=== PATIENT | male | born 1950 | race Two or more races ===

== ENCOUNTER 2016-07-22 08:13 | Day surgery (SDC) | payer MEDICARE, OTHER ==
[~2016-07-22] VITALS: Ht 172.7 cm; Wt 94.8 kg
[2016-07-22] VITALS (40 sets, daily range): BP systolic 116–168; BP diastolic 59–76; PULSE 54–72; RESP 11–23; Ht 172.7 cm; Wt 94.8 kg
[~2016-07-22 08:13] MED LIST: AMLO5TAB4 PO; APIX5TAB PO; CLON-379 PO; FENO134C PO; METF500T PO; METO-429 PO; METO-448 PO; OLME1TAB20 PO
--- NOTE | 2016-07-22 09:38 | RADRPT ---
PROCEDURE: XR Chest. CLINICAL INDICATION: Chest pain. Preoperative. TECHNIQUE: Single frontal view. COMPARISON: 04/28/2014. FINDINGS: The lungs are clear. The heart size is normal. There is calcification in the aorta consistent with atherosclerosis. There is no pleural effusion. There is no pneumothorax. IMPRESSION: 1. Atherosclerosis. 2. Clear lungs. RPTAT: QQ .Melvin Munoz MD, MD Date Time Electronically viewed and signed by .Melvin Munoz MD, MD on 07/22/2016 09:37 .R/
[2016-07-22 09:40] LABS: ADD SCAN DIFF NO
[2016-07-22 09:43] LABS: BASOPHILS % 0.2 % (0.0-2.0); EOSINOPHILS # 0.1 10^3/ul (0.0-0.5); EOSINOPHILS % 1.5 % (0.0-7.0); HEMATOCRIT 36.8 % (42.0-52.0); HEMOGLOBIN 12.6 g/dl (14.0-18.0); LYMPHOCYTES # 1.3 10^3/ul (0.8-2.9); LYMPHOCYTES % 21.2 % (15.0-51.0); MEAN CORPUSCULAR HEMOGLOBIN 31.8 pg (29.0-33.0); MEAN CORPUSCULAR HGB CONC 34.2 g/dl (32.0-37.0); MEAN CORPUSCULAR VOLUME 92.9 fl (82.0-101.0); MEAN PLATELET VOLUME 10.3 fl (7.4-10.4); MONOCYTE # 0.4 10^3/ul (0.3-0.9); MONOCYTES % 5.9 % (0.0-11.0); NEUTROPHIL # 4.3 10^3/ul (1.6-7.5); NEUTROPHILS % 70.7 % (39.0-77.0); PLATELET COUNT 232 10^3/UL (140-415); RED BLOOD COUNT 3.96 10^6/ul (4.70-6.10); RED CELL DISTRIBUTION WIDTH 13.3 % (11.5-14.5); WHITE BLOOD COUNT 6.1 10^3/ul (4.8-10.8)
[2016-07-22 10:06] LABS: INR 1.19; PROTIME 15.2 Sec (12.2-14.2); PT RATIO 1.2
[2016-07-22 10:07] LABS: PARTIAL THROMBOPLASTIN TIME 29.4 Sec (25.0-35.0)
[2016-07-22 10:10] LABS: CHOL/HDL RATIO 2.5 RATIO
[2016-07-22 10:11] LABS: CALCIUM 9.3 mg/dl (8.4-10.2); CREATININE 1.06 mg/dl (0.61-1.24); POTASSIUM 3.6 mmol/L (3.5-5.1)
[2016-07-22] MEDS ORDERED: LIDOCAINE 1% (MDV) 20 ML INJ ONE (10:44)
[2016-07-22] MEDS ORDERED: MIDAZOLAM 1 MG/ML 2 ML INJ ONE (10:44)
[2016-07-22] MEDS ORDERED: HEPARIN 1000 UNITS/NS (A-LINE) 1,000 ML ONE (10:44)
[2016-07-22] MEDS ORDERED: VERAPAMIL 5 MG INJ ONE (10:44)
[2016-07-22] MEDS ORDERED: HEPARIN 1000 UNITS/ML 10 ML INJ ONE (10:44)
[2016-07-22] MEDS ORDERED: NITROGLYCERIN (IC) 100 MCG/ML INJ ONE (10:44)
[2016-07-22] MEDS ORDERED: FENTAnyl 50 MCG/ML VIAL ONE (10:44)
[2016-07-22] MEDS ORDERED: IODIXANOL LOCM 100 ML BTL ONE (10:44)
[2016-07-22] MEDS ORDERED: AL HYDROX/MG HYDROX/SIMETH 30 ML CUP PO PRN (11:30)
[2016-07-22] MEDS ORDERED: SOD CHLORIDE 0.9% 1,000 ML IV SCH (11:30)
[2016-07-22] MEDS ORDERED: morphine 2 MG INJ IV PRN (11:30)
[2016-07-22] MEDS ORDERED: ACETAMINOPHEN 325 MG TAB PO PRN ×2 (11:30→12:00)
[2016-07-22] MEDS ORDERED: ONDANSETRON 4 MG INJ IV PRN (11:30)
--- NOTE | 2016-07-22 11:47 | CARRPT ---
DATE OF PROCEDURE: 07/22/2016 TYPE OF PROCEDURE: 1. Left heart catheterization. 2. Coronary angiography. 3. Left ventriculogram. ATTENDING PHYSICIAN: Wendi Casillas MD REFERRING PHYSICIAN: Dr. Denney INDICATION: Chest pain with positive stress test findings for ischemia. TYPE OF ANESTHESIA: Conscious and local. BRIEF HISTORY: Mr. Ewing is a 66-year-old male with history of hypertension, dyslipidemia, diabe gurjit mellitus who initially presented with complaints of shoulder pain. The patient subsequently had a cardiac stress test revealing positive ischemia. Given these findings, the patient referred for and presents today in order to undergo left heart catheterization to assess for the possibility of s ignificant obstructive coronary artery disease lending to his symptoms of shoulder pain and positive stress test findings. PROCEDURE: After informed consent was obtained, the patient was brought to the [facility] cardiac catheterization lab where his right radial area was prepped and draped in usual susy rile fashion. Lidocaine 2% was infiltrated into right radial area in order to achieve adequate loca l anesthesia. With modified Seldinger technique, the right radial artery was cannulated and a 6-[facility] arterial was placed. A 6-Zambian JL3.5 catheter was used to cannulate the left main coronary ost ium with contrast injection. Multiple views of the left coronary arterial system were obtained. A JL3.5 over a guidewire and a JR4 was used to cannulate the right coronary arterial ostium. With con trast injection, multiple views of the right coronary arterial system obtained. JR4 was removed ove r a guidewire and a 6-Zambian pigtail was passed down the ascending aorta into the left ventricle. L eft ventricular end-diastolic pressure was measured. Using a power injector, 20 mL of contrast were injected, opacifying the left ventricle, performing a left ventriculogram. The pigtail catheter wa s then pulled back across the aortic valve to assess for significant gradient, which there was not a nd removed. Subsequently, at this time, the patient's sheath was removed. ____ was applied. There were no noted complications. FINDINGS: 1. Coronary angiography: Left main 4.5 mm, no significant stenoses. Circumflex proximally is a sm all caliber vessel, 2 mm, with an ostial 20% stenosis. In the mid portion of the circumflex, there is another 20% to 30% stenosis. The remainder of the circumflex is free of significant focal stenos is, very small caliber vessel. Distal branching obtuse marginal, a 2 mm vessel with no significant focal stenoses. The LAD proximally is a 3.5 mm vessel and after the bifurcation, the diagonal becom es a smaller caliber vessel and continues as approximately a [address] way down to the ape x and does just reach the apex and around it and has no significant focal stenoses. There is a mid proximal branching diagonal and mid branching diagonal, each approximately 2 mm with no significant focal stenoses. The patient's right coronary artery proximally is a 3.5 mm vessel and in its proxim al portion has a 50% stenosis, in the mid distal portion has a tubular 40% stenosis, is a dominant v essel, gives off a 2.5 mm PDA with an ostial 40% stenosis and a 3 mm posterolateral branch with no s ignificant focal stenoses. 1. Left ventriculogram revealed a preserved left ventricular ejection fraction of 60%, left ventric ular end diastolic pressure of 23 pre-LV gram, 26 post-LV gram, 1+ mitral regurgitation, no signific ant aortic stenosis by gradient. TOTAL FLUOROSCOPY TIME: 3.6 minutes. TOTAL CONTRAST: 25 mL. IMPRESSION: 1. Moderate nonobstructive coronary artery disease. 2. Preserved left ventricular systolic function. 3. Elevated left heart filling pressures. 4. No significant aortic stenosis by gradient. 5. 1+ mitral regurgitation. RECOMMENDATIONS: In light of procedure and findings at this time would: 1. Maximize medical management. 2. Aggressive risk factor reduction. 3. Patient will be readmitted to the same day surgery center for post catheterization observation a nd continued management of symptoms with discharge probably later this afternoon. Dictated By: WENDI ELLIOTT/KARELY Conf#: [id number] DID#: [id number] CC: NIKITA SHEPARD MD;*EndCC*
[2016-07-22] MEDS ORDERED: ACETAMINOPHEN 325 MG TAB ONE (11:50)
--- NOTE | 2016-07-23 08:51 | CONS ---
DATE OF ADMISSION: 07/22/2016 DATE OF CONSULTATION: 07/22/2016 TYPE OF PROCEDURE: 1. Left heart catheterization. 2. Coronary angiography. 3. Left ventriculogram. ATTENDING PHYSICIAN: Wendi Casillas MD REFERRING PHYSICIAN: Jd Denney MD INDICATION: Positive stress test findings, shoulder pain, possible anginal equivalent. TYPE OF ANESTHESIA: Conscious and local. BRIEF HISTORY AND HOSPITAL COURSE: Mr. Ewing is a 66-year-old male with history of hypertension, dyslipidemia, diabetes mellitus, who initially presented with complaints of shoulder pain. The pat ient underwent a cardiac stress test revealing positive ischemia. He has now been referred for left heart catheterization to assess for the possibility of significant obstructive coronary artery dise ase leading to symptoms of shoulder pain and positive stress test findings. PROCEDURE: After informed consent was obtained, he was brought to the [facility] cardiac catheterization lab where his right radial area was prepped and draped in the usual sterile fashion. Lidocaine 2% was infiltrated into the right radial artery in order to achieve adequate ane sthesia. Using modified Seldinger technique, the radial artery was cannulated and a 6-Upper Sor[place] JL3.5 catheter was used to cannulate the left main coronary ostium. With contrast injection, multiple vie ws of the left coronary arterial system were obtained. The JL3.5 was removed over a guidewire and a JR4 was used to cannulate the right coronary arterial ostium. With contrast injection, multiple vi ews of the right coronary arterial system were obtained. JL4 was removed over a guidewire and a 6-F rench pigtail was passed down the ascending aorta into the left ventricle. Left ventricular end-tammi stolic pressure was measured. Using a power injector, 20 mL of contrast were injected opacifying th e left ventricle. The pigtail catheter was then pulled back across the aortic valve to assess for s ignificant gradient, which there was not and removed. At this time, the patient's sheath was remove d. A TR band was applied. This completed the procedure. There were no noted complications. FINDINGS: Coronary angiography: Left main 4.5 mm, no significant stenoses. Circumflex DICTATION ENDS HERE Dictated By: WENDI ELLIOTT/KARELY Conf#: [id number] DID#: [id number]
== END 2016-07-22 16:40 | disposition home or self-care (01) ==
LOC: SDS 08:13
PROVIDERS: ATTEND Internal Medicine
DX: I25.10 Atherosclerotic heart disease of native coronary artery without angina pectoris (principal); I34.0 Nonrheumatic mitral (valve) insufficiency; I10 Essential (primary) hypertension; E78.5 Hyperlipidemia, unspecified; E11.9 Type 2 diabetes mellitus without complications
CPT/HCPCS: 71010; 80048; 80061; 82962; 85025; 85610; 85730; 93458; C1769; C1887; J1644; J2250; J3010; Q9967

== ENCOUNTER 2017-01-03 23:46 | Observation (INO) | payer MEDICARE, OTHER ==
[~2017-01-03] VITALS: Ht 170.2 cm; Wt 103.0 kg
[2017-01-04] VITALS (10 sets, daily range): BP systolic 138–182; BP diastolic 67–85; PULSE 52–65; RESP 18–19; TEMP 98.1; Ht 170.2 cm; Wt 103.0 kg
[2017-01-04 00:29] LABS: BASOPHILS % 0.3 % (0.0-2.0); EOSINOPHILS # 0.1 10^3/ul (0.0-0.5); EOSINOPHILS % 0.6 % (0.0-7.0); HEMATOCRIT 35.9 % (42.0-52.0); HEMOGLOBIN 13.1 g/dl (14.0-18.0); LYMPHOCYTES # 1.5 10^3/ul (0.8-2.9); LYMPHOCYTES % 14.5 % (15.0-51.0); MEAN CORPUSCULAR HEMOGLOBIN 32.7 pg (29.0-33.0); MEAN CORPUSCULAR HGB CONC 36.5 g/dl (32.0-37.0); MEAN CORPUSCULAR VOLUME 89.5 fl (82.0-101.0); MEAN PLATELET VOLUME 10.1 fl (7.4-10.4); MONOCYTE # 0.5 10^3/ul (0.3-0.9); MONOCYTES % 5.1 % (0.0-11.0); NEUTROPHIL # 8.2 10^3/ul (1.6-7.5); NEUTROPHILS % 79.1 % (39.0-77.0); PLATELET COUNT 202 10^3/UL (140-415); RED BLOOD COUNT 4.01 10^6/ul (4.70-6.10); RED CELL DISTRIBUTION WIDTH 12.6 % (11.5-14.5); WHITE BLOOD COUNT 10.3 10^3/ul (4.8-10.8)
[2017-01-04 00:51] LABS: ALANINE AMINOTRANSFERASE 42 IU/L (13-69); ALBUMIN 3.5 g/dl (3.3-4.9); ALBUMIN/GLOBULIN RATIO 1.02; ALKALINE PHOSPHATASE 86 IU/L (42-121); ANION GAP 12 (8-16); ASPARTATE AMINO TRANSFERASE 30 IU/L (15-46); BILIRUBIN,INDIRECT 0.2 mg/dl (0-1.1); BILIRUBIN,TOTAL 0.2 mg/dl (0.2-1.3); BLOOD UREA NITROGEN 16 mg/dl (7-20); CALCIUM 9.4 mg/dl (8.4-10.2); CARBON DIOXIDE 18 mmol/L (21-31); CHLORIDE 110 mmol/L (97-110); CREATININE 0.95 mg/dl (0.61-1.24); GLUCOSE 247 mg/dl (70-220); POTASSIUM 3.2 mmol/L (3.5-5.1); SODIUM 137 mmol/L (135-144); TOTAL PROTEIN 6.9 g/dl (6.1-8.1)
[2017-01-04 01:01] LABS: B-TYPE NATRIURETIC PEPTIDE 217 PG/ML (0-125)
[2017-01-04 01:08] LABS: TROPONIN-I < 0.012 ng/ml (0.00-0.12)
--- NOTE | 2017-01-04 01:12 | RADRPT ---
PROCEDURE: XR Chest. CLINICAL INDICATION: Chest pain. TECHNIQUE: Single frontal view of the chest. COMPARISON: 01/04/2017 FINDINGS: Cardiomegaly and atherosclerotic calcifications in the thoracic aorta. The lungs are clear. No signs of pleural fluid or pneumothorax are seen. The osseous structures and soft tissues are unremarkable . IMPRESSION: No evidence for active cardiopulmonary disease. RPTAT: [facility]U Physician Igor Date Time Electronically viewed and signed by Physician Igor on 01/04/2017 01:11 RS/
[2017-01-04] MEDS ORDERED: NAPR-688 PO (02:04)
[2017-01-04] MEDS ORDERED: OLOP2.5D5 OP (02:04)
[2017-01-04] MEDS ORDERED: DUTA0.5C PO (02:04)
[2017-01-04] MEDS ORDERED: ICOS1CAP PO (02:04)
[2017-01-04] MEDS ORDERED: DEXL60CA2 PO (02:04)
[2017-01-04] MEDS ORDERED: SITA1TAB5 PO (02:11)
[2017-01-04] MEDS ORDERED: ZOLP10TA5 PO (02:11)
[2017-01-04] MEDS ORDERED: SUMA100T4 PO (02:11)
[2017-01-04] MEDS ORDERED: APIX5TAB PO (02:11)
--- NOTE | 2017-01-04 02:23 | ERA ---
ER Documentation Chief Complaint Date/Time DATE: 01/04/17 TIME: 02:22 Chief Complaint unprovoked CP this evening, radiating down left arm HPI This is a 66-year-old gentleman known history of coronary artery disease that comes in with complaints of unprovoked chest pain that started this evening at 6 PM. Pain is mild to moderate in intensity, lasted 15 minutes and was relieved by nitro given to him by EMS. No fevers no chills no nausea no vomiting no shortness of breath. Mild diaphoresis. Patient has a history of coronary disease. ROS All systems reviewed and are negative except as per history of present illness. Medications Home Meds Active Scripts Metformin Hcl (Glucophage) 500 Mg Tablet, 500 MG PO BID, #60 TAB Prov:JARETT MAI 04/29/14 Apixaban* (Eliquis*) 5 Mg Tablet, 5 MG PO BID, #60 TAB 1 Refill Prov:JARETT MAI 04/29/14 Reported Medications Apixaban* (Eliquis*) 5 Mg Tablet, 10 MG PO BID, TAB 01/04/17 Sitagliptin Phos/Metformin HCl (Janumet 50-1,000 mg Tablet) 1 Each Tablet, 1 EACH PO, TAB 01/04/17 Zolpidem Tartrate* (Zolpidem Tartrate*) 10 Mg Tablet, 10 MG PO QHS Y for INSOMNIA, #30 TAB 01/04/17 Sumatriptan Succinate* (Sumatriptan Succinate*) 100 Mg Tablet, 100 MG PO BID Y for MIGRAINE HEADACHE, TAB May repeat after 2 hours if needed; MAX 200 mg/24 hours 01/04/17 Naproxen* (Naproxen*) 500 Mg Tablet, 500 MG PO DAILY, TAB tk 1 tablet PO Daily or as needed for Pain 01/04/17 Olopatadine HCl (Pazeo) 2.5 Ml Drops, 2.5 ML OP, BOTTLE 01/04/17 Icosapent Ethyl (VASCEPA) 1 Gm Capsule, 1 GM PO, CAP 01/04/17 Dexlansoprazole (Dexilant) 60 Mg Robert., 60 MG PO DAILY, #30 CAP 01/04/17 Dutasteride* (Avodart*) 0.5 Mg Capsule, 0.5 MG PO DAILY, CAP 01/04/17 Clonidine Hcl* (Clonidine Hcl*) 0.1 Mg Tab, 0.1 MG PO Q8, TAB 04/28/14 Metoprolol Tartrate* (Lopressor*) 50 Mg Tab, 50 MG PO BID, TAB 04/28/14 Fenofibrate, Micronized (Fenofibrate) 134 Mg Capsule, 134 MG PO DAILY, CAP 04/28/14 Amlodipine Besylate* (Norvasc*) 5 Mg Tablet, 5 MG PO DAILY, TAB 04/28/14 Metoprolol Tartrate* (Lopressor*) 25 Mg Tab, 37.5 MG PO DAILY, TAB 04/28/14 Olmesartan-Hydrochlorothiazide (Benicar HCT) 40-25 Mg Tablet, 1 TAB PO DAILY, TAB 04/28/14 Allergies Allergies: Coded Allergies: No Known Drug Allergy (Verified Allergy, Mild, 07/22/16) PMhx/Soc History of Surgery: No Anesthesia Reaction: No Hx Neurological Disorder: No Hx Respiratory Disorders: No Hx Cardiac Disorders: Yes (HTN) Hx Psychiatric Problems: Yes (DEPRESSION, ANXIETY) Hx Miscellaneous Medical Probl: Yes (DM, ) Hx Alcohol Use: No Hx Substance Use: No Hx Tobacco Use: No Smoking Status: Never smoker Physical Exam Vitals Vital Signs Date Time Temp Pulse Resp B/P Pulse Ox O2 Delivery O2 Flow Rate FiO2 01/04/17 01:01 98.1 65 13 168/73 98 Room Air 01/03/17 23:50 98.1 70 17 159/76 100 Physical Exam Const: [] Head: Atraumatic Eyes: Normal Conjunctiva ENT: Normal External Ears, Nose and Mouth. Neck: Full range of motion..~ No meningismus. Resp: Clear to auscultation bilaterally Cardio: Regular rate and rhythm, no murmurs Abd: Soft, non tender, non distended. Normal bowel sounds Skin: No petechiae or rashes Back: No midline or flank tenderness Ext: No cyanosis, or edema Neur: Awake and alert Psych: Normal Mood and Affect Result Diagram: 01/04/17 0010 01/04/17 0010 Results 24 hrs Laboratory Tests Test 01/04/17 00:10 White Blood Count 10.310^3/ul Red Blood Count 4.0110^6/ul Hemoglobin 13.1g/dl Hematocrit 35.9% Mean Corpuscular Volume 89.5fl Mean Corpuscular Hemoglobin 32.7pg Mean Corpuscular Hemoglobin Concent 36.5g/dl Red Cell Distribution Width 12.6% Platelet Count 74968^3/UL Mean Platelet Volume 10.1fl Neutrophils % 79.1% Lymphocytes % 14.5% Monocytes % 5.1% Eosinophils % 0.6% Basophils % 0.3% Nucleated Red Blood Cells % 0.0/100WBC Neutrophils # 8.210^3/ul Lymphocytes # 1.510^3/ul Monocytes # 0.510^3/ul Eosinophils # 0.110^3/ul Basophils # 0.010^3/ul Nucleated Red Blood Cells # 0.010^3/ul Sodium Level 137mmol/L Potassium Level 3.2mmol/L Chloride Level 110mmol/L Carbon Dioxide Level 18mmol/L Anion Gap 12 Blood Urea Nitrogen 16mg/dl Creatinine 0.95mg/dl Glucose Level 247mg/dl Calcium Level 9.4mg/dl Total Bilirubin 0.2mg/dl Direct Bilirubin 0.00mg/dl Indirect Bilirubin 0.2mg/dl Aspartate Amino Transf (AST/SGOT) 30IU/L Alanine Aminotransferase (ALT/SGPT) 42IU/L Alkaline Phosphatase 86IU/L Troponin I < 0.012ng/ml B-Type Natriuretic Peptide 217PG/ML Total Protein 6.9g/dl Albumin 3.5g/dl Globulin 3.40g/dl Albumin/Globulin Ratio 1.02 Procedures/MDM EKG: Rate/Rhythm: [Normal Sinus Rhythm] QRS, ST, T-waves: [No changes consistent w/ acute ischemia] Impression: [No evidence of ischemia or arrhythmia] Chest X-ray 1V Interpreted by me: Soft Tissue: No acute abnormalities Bones: No acute abnormalities Mediastinum/Cardiac Silhouette/Lungs: [No acute abnormalities] Patient's symptoms are concerning for cardiac cause will require inpatient workup and continuous monitoring. Further w/u for ischemia, arrhythmia, PE or dissection will be deferred to the inpatient team. Accepting Care Team: Current data and ongoing care discussed. Time: 2:30 AM Primary Provider: Hospitalist Consulting: [XOXOXO] Outstanding Data: none Departure Diagnosis: Primary Impression: Chest pain Qualified Code: R07.9 - Chest pain, unspecified type Condition: Serious STEVENSON BEY Jan 04, 2017 02:23
[2017-01-04] MEDS ORDERED: ALBUTEROL/IPRATROPIUM (NEB) 3 ML AMP HHN PRN (03:30)
[2017-01-04] MEDS ORDERED: ZOLPIDEM 5 MG TAB PO PRN (03:30)
[2017-01-04] MEDS ORDERED: ONDANSETRON 4 MG INJ IV PRN (03:30)
[2017-01-04] MEDS ORDERED: SUMATRIPTAN 50 MG TAB PO PRN (03:30)
[2017-01-04] MEDS ORDERED: ACETAMINOPHEN 325 MG TAB PO PRN (03:30)
[2017-01-04] MEDS ORDERED: NACL 0.9% 3 ML SYG IV SCH (03:30)
[2017-01-04] MEDS ORDERED: NITROGLYCERIN (SL) 0.4 MG TAB SL PRN (03:30)
[2017-01-04] MEDS ORDERED: morphine 2 MG INJ IV PRN (03:30)
[2017-01-04] MEDS ORDERED: POTASSIUM CHLORIDE (SR) 20 MEQ TAB PO ONE (03:35)
[2017-01-04] MEDS ORDERED: GLUCOSE GEL 15 GRAM TUBE BUCCAL PRN (03:45)
[2017-01-04] MEDS ORDERED: DEXTROSE 50% 50 ML SYRINGE IV PRN ×2 (03:45)
[2017-01-04] MEDS ORDERED: GLUCOSE GEL 15 GRAM TUBE PO PRN ×2 (03:45)
[2017-01-04] MEDS ORDERED: GLUCAGON 1 MG INJ IM PRN (03:45)
[2017-01-04 05:34] LABS: BASOPHILS % 0.4 % (0.0-2.0); EOSINOPHILS # 0.1 10^3/ul (0.0-0.5); EOSINOPHILS % 0.8 % (0.0-7.0); HEMATOCRIT 35.4 % (42.0-52.0); HEMOGLOBIN 12.8 g/dl (14.0-18.0); LYMPHOCYTES # 1.8 10^3/ul (0.8-2.9); LYMPHOCYTES % 21.2 % (15.0-51.0); MEAN CORPUSCULAR HEMOGLOBIN 32.6 pg (29.0-33.0); MEAN CORPUSCULAR HGB CONC 36.2 g/dl (32.0-37.0); MEAN CORPUSCULAR VOLUME 90.1 fl (82.0-101.0); MEAN PLATELET VOLUME 10.5 fl (7.4-10.4); MONOCYTE # 0.6 10^3/ul (0.3-0.9); MONOCYTES % 7.2 % (0.0-11.0); NEUTROPHILS % 70.2 % (39.0-77.0); PLATELET COUNT 193 10^3/UL (140-415); RED BLOOD COUNT 3.93 10^6/ul (4.70-6.10); RED CELL DISTRIBUTION WIDTH 12.5 % (11.5-14.5); WHITE BLOOD COUNT 8.5 10^3/ul (4.8-10.8)
[2017-01-04 05:56] LABS: CREATINE KINASE 104 IU/L (23-200)
[2017-01-04 05:57] LABS: ALBUMIN 3.2 g/dl (3.3-4.9); ALBUMIN/GLOBULIN RATIO 0.96; BILIRUBIN,INDIRECT 0.2 mg/dl (0-1.1); BILIRUBIN,TOTAL 0.2 mg/dl (0.2-1.3); CALCIUM 9.2 mg/dl (8.4-10.2); CHOL/HDL RATIO 2.9 RATIO; CREATININE 0.88 mg/dl (0.61-1.24); POTASSIUM 3.6 mmol/L (3.5-5.1); TOTAL PROTEIN 6.5 g/dl (6.1-8.1)
[2017-01-04] MEDS ORDERED: PANTOPRAZOLE (EC) 40 MG TAB PO SCH (06:00)
[2017-01-04 06:11] LABS: CK-MB 0.97 ng/ml (0.0-2.4); TROPONIN-I < 0.012 ng/ml (0.00-0.12)
--- NOTE | 2017-01-04 07:23 | HP ---
Date/Time of Note Date/Time of Note DATE: 01/04/17 TIME: 07:10 Assessment/Plan VTE Prophylaxis VTE Prophylaxis Intervention: other (Eliquis) Lines/Catheters IV Catheter Type (from [facility]): [place] [facility] Assessment/Plan Assessment/Plan ASSESSMENT 66-year-old male with a history of hypertension, A-fib, type 2 diabetes, dyslipidemia and nonobstructive CAD per 08/2016 cardiac cath 2 presented with vague left-sided chest pain likely result of anxiety caused by elevated blood pressure PLAN I believe his chest pain is a result of anxiety given the patient reported being anxious when he found out his blood pressure was elevated. Continue telemetry monitoring Trend troponin Continue cardiac meds, statin, as well as antiplatelet and Eliquis(A-fib) 2D echo Insulin while in-house for management of diabetes Check A1c and fasting lipid in a.m. Notify Dr. Casillas about patient's admission. Notes that patient had left heart cath 5 months ago which showed moderate nonobstructive CAD HPI/ROS Admit Date/Time Admit Date/Time Jan 04, 2017 at 02:21 Hx of Present Illness This is a 66-year-old male with a history of hypertension, A-fib, nonobstructive CAD, type 2 diabetes, dyslipidemia who presented to emergency department complaining of left-sided chest pain and elevated blood pressure. He said he checked his blood pressure at home and found out that it was greater than 200/100. He took his blood pressure medications and repeated blood pressure measurement an hour later and found out that it was a still greater than 200/100. He said he became nervous and then started having vague left- sided chest discomfort with no radiation. Denied nausea, vomiting or diaphoresis. Denied any acute onset shortness of breath even though he said "I am always short of breath". He said he was seen by his network lead, Dr. Contreras a month ago and was told that everything was okay. He underwent a left heart catheterization here 5 month ago and found to have a moderate non- obstructive CAD. PMH/Family/Social Social History Smoking Status: Never smoker Exam/Review of Systems Vital Signs Vitals Vital Signs Date Time Temp Pulse Resp B/P Pulse Ox O2 Delivery O2 Flow Rate FiO2 01/04/17 06:15 62 165/75 01/04/17 04:00 98.3 19 98 01/04/17 03:00 Room Air Intake and Output 01/03/17 01/03/17 01/04/17 15:00 23:00 07:00 Intake Total 400 ml Balance 400 ml Exam Constitutional: alert, oriented, well developed Head: atraumatic, normocephalic Eyes: EOMI, PERRL Respiratory: clear to auscultation, normal air movement Cardiovascular: nl pulses, regular rate and rhythm Gastrointestinal: non-tender, soft Extremities: normal pulses Labs Result Diagram: 01/04/1743901/04/17439 Medications Medications Current Medications Ondansetron HCl (Zofran Inj) 4 mg Q6H PRN IV NAUSEA AND/OR VOMITING; Start at 03:30 Nitroglycerin (Nitroglycerin (Sl Tab) 0.4 Mg) 1 tab Q5M PRN SL CHEST PAIN; Start 01/04/17 at 03:30 Acetaminophen (Tylenol Tab) 650 mg Q6H PRN PO PAIN LEVEL 1-3 OR FEVER; Start at 03:30 Morphine Sulfate (morphine) 2 mg Q4H PRN IV PAIN LEVEL 7-10 Last administered on 01/04/17 04:03; Admin Dose 2 MG; Start 01/04/17 at 03:30 Diagnostic Test (Pha) (Accu-Chek) 1 ea 02 XX ; Start 01/05/17 at 02:00 Insulin Glargine (Lantus) 15 unit DAILY@08 SC ; Start 01/04/17 at 08:00 Amlodipine Besylate (Norvasc) 5 mg DAILY PO ; Start 01/04/17 at 09:00 Apixaban (Eliquis) 10 mg BID PO ; Start 01/04/17 at 09:00 Dutasteride (Avodart) 0.5 mg DAILY PO ; Start 01/04/17 at 09:00 Metoprolol Tartrate (Lopressor) 50 mg BID PO ; Start 01/04/17 at 09:00 Sumatriptan Succinate (Imitrex) 100 mg BID PRN PO MIGRAINE HEADACHE; Start at 03:30 Zolpidem Tartrate (Ambien) 10 mg QHS PRN PO INSOMNIA; Start 01/04/17 at 03:30 Pantoprazole (Protonix Tab) 40 mg DAILY@06 PO Last administered on 9/27/17at 06 :14; Admin Dose 40 MG; Start 01/04/17 at 06:00 Fenofibrate (Tricor) 145 mg DAILY PO ; Start 01/04/17 at 09:00 Miscellaneous Information 1 ea NOTE XX ; Start 01/04/17 at 03:45 Glucose (Glutose) 15 gm Q15M PRN PO DECREASED GLUCOSE; Start 01/04/17 at 03:45 Glucose (Glutose) 22.5 gm Q15M PRN PO DECREASED GLUCOSE; Start 01/04/17 at 03: 45 Dextrose (D50w Syringe) 25 ml Q15M PRN IV DECREASED GLUCOSE; Start 01/04/17 at 03:45 Dextrose (D50w Syringe) 50 ml Q15M PRN IV DECREASED GLUCOSE; Start 01/04/17 at 03:45 Glucagon (Glucagen) 1 mg Q15M PRN IM DECREASED GLUCOSE; Start 01/04/17 at 03:45 Glucose (Glutose) 15 gm Q15M PRN BUCCAL DECREASED GLUCOSE; Start 01/04/17 at 03 :45 STEVENSON YOO MD Jan 04, 2017 07:20
[2017-01-04] MEDS ORDERED: INSULIN GLARGINE [LANtus] 3 ML PEN SC SCH (08:00)
[2017-01-04] MEDS: INSULIN ASPART [NOVOLOG] 3 ML PEN SC SCH ×4 (08:58→12:47)
[2017-01-04] MEDS ORDERED: DUTASTERIDE 0.5 MG CAP PO SCH ×2 (09:00→21:00)
[2017-01-04] MEDS ORDERED: FENOFIBRATE 145 MG TAB PO SCH (09:00)
[2017-01-04] MEDS ORDERED: METOPROLOL 50 MG TAB PO SCH (09:00)
[2017-01-04] MEDS ORDERED: APIXABAN 5 MG TABLET PO SCH ×2 (09:00→10:30)
[2017-01-04] MEDS ORDERED: AMLODIPINE 5 MG TAB PO SCH (09:00)
--- NOTE | 2017-01-04 10:22 | CONS ---
Date/Time of Note Date/Time of Note DATE: 01/04/17 TIME: 10:21 Assessment/Plan Assessment/Plan Additional Assessment/Plan h/o CAD - [facility] 07/2016 - non-obstructive dz - medr x now - Eliqiuis 10 bid (too high of a dose for a. fib ) will change to 5 bid now - fill note dictated. # [id number] Consultation Date/Type/Reason Admit Date/Time Jan 04, 2017 at 02:21 Initial Consult Date Exam/Review of Systems Vital Signs Vitals Vital Signs Date Time Temp Pulse Resp B/P Pulse Ox O2 Delivery O2 Flow Rate FiO2 01/04/17 08:04 57 01/04/17 07:59 97.4 19 159/77 97 01/04/17 03:00 Room Air Intake and Output 01/03/17 01/03/17 01/04/17 15:00 23:00 07:00 Intake Total 400 ml Balance 400 ml Results Result Diagram: 01/04/17 0440 01/04/17 0440 Results 24 hrs Laboratory Tests Test 01/04/17 00:10 01/04/17 02:50 01/04/17 04:40 01/04/17 04:42 White Blood Count 10.3 # 8.5 Red Blood Count 4.01 L 3.93 L Hemoglobin 13.1 L 12.8 L Hematocrit 35.9 L 35.4 L Mean Corpuscular Volume 89.5 90.1 Mean Corpuscular Hemoglobin 32.7 32.6 Mean Corpuscular Hemoglobin Concent 36.5 36.2 Red Cell Distribution Width 12.6 12.5 Platelet Count 202 193 Mean Platelet Volume 10.1 10.5 H Neutrophils % 79.1 H 70.2 Lymphocytes % 14.5 L 21.2 Monocytes % 5.1 7.2 Eosinophils % 0.6 0.8 Basophils % 0.3 0.4 Nucleated Red Blood Cells % 0.0 0.0 Neutrophils # 8.2 H 6.0 Lymphocytes # 1.5 1.8 Monocytes # 0.5 0.6 Eosinophils # 0.1 0.1 Basophils # 0.0 0.0 Nucleated Red Blood Cells # 0.0 0.0 Sodium Level 137 140 Potassium Level 3.2 L 3.6 Chloride Level 110 113 H Carbon Dioxide Level 18 L 21 Anion Gap 12 10 Blood Urea Nitrogen 16 14 Creatinine 0.95 0.88 Glucose Level 247 H 140 # Calcium Level 9.4 9.2 Total Bilirubin 0.2 0.2 Direct Bilirubin 0.00 0.00 Indirect Bilirubin 0.2 0.2 Aspartate Amino Transf (AST/SGOT) 30 29 Alanine Aminotransferase (ALT/SGPT) 42 45 Alkaline Phosphatase 86 51 Troponin I < 0.012 < 0.012 B-Type Natriuretic Peptide 217 H Total Protein 6.9 6.5 Albumin 3.5 3.2 L Globulin 3.40 H 3.30 H Albumin/Globulin Ratio 1.02 0.96 Bedside Glucose 202 141 Hemoglobin A1c 6.7 H Creatine Kinase 104 Creatine Kinase Index 0.9 Creatinine Kinase MB (Mass) 0.97 Triglycerides Level 209 H Cholesterol Level 143 LDL Cholesterol, Calculated 53 HDL Cholesterol 48 Cholesterol/HDL Ratio 2.9 Test 01/04/17 08:33 Bedside Glucose 161 Medications Medications Current Medications Ondansetron HCl (Zofran Inj) 4 mg Q6H PRN IV NAUSEA AND/OR VOMITING; Start at 03:30 Nitroglycerin (Nitroglycerin (Sl Tab) 0.4 Mg) 1 tab Q5M PRN SL CHEST PAIN; Start 01/04/17 at 03:30 Acetaminophen (Tylenol Tab) 650 mg Q6H PRN PO PAIN LEVEL 1-3 OR FEVER; Start at 03:30 Morphine Sulfate (morphine) 2 mg Q4H PRN IV PAIN LEVEL 7-10 Last administered on 01/04/17 04:03; Admin Dose 2 MG; Start 01/04/17 at 03:30 Diagnostic Test (Pha) (Accu-Chek) 1 ea 02 XX ; Start 01/05/17 at 02:00 Insulin Glargine (Lantus) 15 unit DAILY@08 SC Last administered on 01/04/17 08 :59; Admin Dose 15 UNIT; Start 01/04/17 at 08:00 Amlodipine Besylate (Norvasc) 5 mg DAILY PO Last administered on 01/04/17 08: 52; Admin Dose 5 MG; Start 01/04/17 at 09:00 Metoprolol Tartrate (Lopressor) 50 mg BID PO Last administered on 01/04/17 08: 36; Admin Dose 50 MG; Start 01/04/17 at 09:00 Sumatriptan Succinate (Imitrex) 100 mg BID PRN PO MIGRAINE HEADACHE; Start at 03:30 Zolpidem Tartrate (Ambien) 10 mg QHS PRN PO INSOMNIA; Start 01/04/17 at 03:30 Pantoprazole (Protonix Tab) 40 mg DAILY@06 PO Last administered on 01/04/17 06 :14; Admin Dose 40 MG; Start 01/04/17 at 06:00 Fenofibrate (Tricor) 145 mg DAILY PO Last administered on 01/04/17 08:37; Admin Dose 145 MG; Start 01/04/17 at 09:00 Miscellaneous Information 1 ea NOTE XX ; Start 01/04/17 at 03:45 Glucose (Glutose) 15 gm Q15M PRN PO DECREASED GLUCOSE; Start 01/04/17 at 03:45 Glucose (Glutose) 22.5 gm Q15M PRN PO DECREASED GLUCOSE; Start 01/04/17 at 03: 45 Dextrose (D50w Syringe) 25 ml Q15M PRN IV DECREASED GLUCOSE; Start 01/04/17 at 03:45 Dextrose (D50w Syringe) 50 ml Q15M PRN IV DECREASED GLUCOSE; Start 01/04/17 at 03:45 Glucagon (Glucagen) 1 mg Q15M PRN IM DECREASED GLUCOSE; Start 01/04/17 at 03:45 Glucose (Glutose) 15 gm Q15M PRN BUCCAL DECREASED GLUCOSE; Start 01/04/17 at 03 :45 Influenza Virus Vaccine (Fluzone) 0.5 ml ONCE ONCE IM* ; Start 01/05/17 at 09:00 ; Stop 01/05/17 at 09:01 Dutasteride (Avodart) 0.5 mg HS PO ; Start 01/04/17 at 21:00 Apixaban (Eliquis) 5 mg BID PO ; Start 01/04/17 at 10:30 CHETNA PEDERSEN MD Jan 04, 2017 10:22
[2017-01-04 12:34] LABS: CREATINE KINASE 98 IU/L (23-200)
--- NOTE | 2017-01-04 12:38 | CONS ---
DATE OF ADMISSION: 01/04/2017 DATE OF CONSULTATION: 01/04/2017 REFERRING PHYSICIAN: Kemar Culver MD REASON FOR CONSULTATION: Chest pain. HISTORY OF PRESENT ILLNESS: The patient is a 66-year-old gentleman, patient of Dr. Casillas and Dr. Denney who comes to the hospital for evaluation of chest pain. The patient has a history of hypertension and dyslipidemia in the past. The patient had recent reevaluation, had a left heart cath with Dr. Casillas in 07/2016, which showed moderate nonobstructive coronary disease with preserved ejection fraction. The patient did not rule in for ischemia at this point. As such, I think conservative therapy as expected. We will continue daptomycin for blood pressure control and follow respectively. There is no indication for further recertification at this point. PAST MEDICAL HISTORY: 1. Hypertension. 2. Dyslipidemia. 3. History of coronary artery disease. 4. History of tobacco use in the past. 5. History of diabetes. 6. History of atrial fibrillation. ALLERGIES: NO KNOWN DRUG ALLERGIES. SOCIAL HISTORY: The patient does not smoke. Does not drink. Does not use any drugs. FAMILY HISTORY: Negative for sudden cardiac or premature coronary artery disease. MEDICATIONS: 1. Nitroglycerin. 2. Tylenol. 3. Morphine. 4. Insulin sliding scale. 5. Amlodipine. 6. Eliquis 10 mg p.o. b.i.d. 7. Metoprolol tartrate 50 mg p.o. b.i.d. 8. Zolpidem. 9. Fenofibrate. 10. Glucose. REVIEW OF SYSTEMS: GENERAL: No fevers. No chills. No shortness of breath. HEENT: Reviewed. CARDIAC: No chest pain reported. RESPIRATORY: No shortness of breath. GASTROINTESTINAL: No nausea. No vomiting. GENITOURINARY: No dysuria or hematuria. . NEUROLOGIC: PSYCHIATRIC: No known history of psychiatric illness. LABORATORY DATA: White blood cell count of 8.5, hemoglobin is 12.8, platelets 193. Sodium 140, potassium 4.6, troponin is negative at 0.012. ECG reviewed by me shows sinus rhythm at a rate of 65 with some nonspecific STT changes. ASSESSMENT AND PLAN: 1. Chest pain. The patient comes in with chest pain. He has had a left heart catheterization with Dr. Casillas in 07/2016. There is known obstructive disease. For now conservative therapy as expected. We will followup expectantly. 2. Atrial fibrillation. The patient has a history of atrial fibrillation, likely paroxysmal. The patient is in sinus rhythm now. His Eliquis is 10 mg b.i.d., which is supratherapeutic dose. We will recommend 5 mg adjustment and close followup. 3. Hypertension. Blood pressure continue as needed. 4. Diastolic heart failure. therapy. We will give the patient . 5. Abnormal EKG, nonspecific STT changes noted. No particular intervention noted. 6. Dyslipidemia. Continue patient's . I would like to thank Dr. Culver for referring this patient for my evaluation. Dictated By: Carlos Limon MD /jl/marion /Document#: [id number]
[2017-01-04 12:51] LABS: CK-MB 0.71 ng/ml (0.0-2.4); TROPONIN-I < 0.012 ng/ml (0.00-0.12)
[2017-01-04] MEDS ORDERED: ALPR0.25 PO (13:09)
--- NOTE | 2017-01-04 13:21 | DS ---
Date/Time of Note Date/Time of Note DATE: 01/04/17 TIME: 13:12 Discharge Summary Admission/Discharge Info Admit Date/Time Jan 04, 2017 at 02:21 Discharge Date/Time Discharge Diagnosis 1. Chest pain, musculoskeletal, follow up with PCP 2. CAD with nonobstructive lesions on coronary angiography in 07/2016, continue medical management and follow up with cardiology 3. Hypertension, continue antihypertensives 4. Dyslipidemia, on statin 5. DM, follow up with PCP 6. Anxiety disorder, on zoloft, add xanax prn, follow up with PCP 7. History of atrial fibrillation, controlled rate, on eliquis Patient Condition: Stable Hx of Present Illness This is a 66-year-old male with a history of hypertension, A-fib, nonobstructive CAD, type 2 diabetes, dyslipidemia who presented to emergency department complaining of left-sided chest pain and elevated blood pressure. He said he checked his blood pressure at home and found out that it was greater than 200/100. He took his blood pressure medications and repeated blood pressure measurement an hour later and found out that it was a still greater than 200/100. He said he became nervous and then started having vague left- sided chest discomfort with no radiation. Denied nausea, vomiting or diaphoresis. Denied any acute onset shortness of breath even though he said "I am always short of breath". He said he was seen by his clinical review specialist, Dr. Contreras a month ago and was told that everything was okay. He underwent a left heart catheterization here 5 month ago and found to have a moderate non- obstructive CAD. Hospital Course The chest pain is atypical, likely musculoskeletal. It is located at one spot at left upper chest, poking like, shooting from from all the way to the back, does not stay. Troponin negative. It sound like patient has anxiety with panic attacks. I had a long discussion with the patient and the family today. She is prescribed zoloft that I recommend him to continue and add xanax prn. I strongly advise him to take all his medications to his PCP to clearify them. Home Meds Active Scripts Alprazolam* (Xanax*) 0.25 Mg Tablet, 0.25 MG PO Q8H Y for ANXIETY, #30 TAB Prov:RAMEZ MCCABE MD 01/04/17 Metformin Hcl (Glucophage) 500 Mg Tablet, 500 MG PO BID, #60 TAB Prov:JARETT MAI 04/29/14 Apixaban* (Eliquis*) 5 Mg Tablet, 5 MG PO BID, #60 TAB 1 Refill Prov:JARETT MAI 04/29/14 Reported Medications Sitagliptin Phos/Metformin HCl (Janumet 50-1,000 mg Tablet) 1 Each Tablet, 1 EACH PO, TAB 01/04/17 Zolpidem Tartrate* (Zolpidem Tartrate*) 10 Mg Tablet, 10 MG PO QHS Y for INSOMNIA, #30 TAB 01/04/17 Sumatriptan Succinate* (Sumatriptan Succinate*) 100 Mg Tablet, 100 MG PO BID Y for MIGRAINE HEADACHE, TAB May repeat after 2 hours if needed; MAX 200 mg/24 hours 01/04/17 Naproxen* (Naproxen*) 500 Mg Tablet, 500 MG PO DAILY, TAB tk 1 tablet PO Daily or as needed for Pain 01/04/17 Olopatadine HCl (Pazeo) 2.5 Ml Drops, 2.5 ML OP, BOTTLE 01/04/17 Icosapent Ethyl (VASCEPA) 1 Gm Capsule, 1 GM PO, CAP 01/04/17 Dexlansoprazole (Dexilant) 60 Mg Cap., 60 MG PO DAILY, #30 CAP 01/04/17 Dutasteride* (Avodart*) 0.5 Mg Capsule, 0.5 MG PO DAILY, CAP 01/04/17 Fenofibrate, Micronized (Fenofibrate) 134 Mg Capsule, 134 MG PO DAILY, CAP 04/28/14 Amlodipine Besylate* (Norvasc*) 5 Mg Tablet, 5 MG PO DAILY, TAB 04/28/14 Metoprolol Tartrate* (Lopressor*) 25 Mg Tab, 37.5 MG PO DAILY, TAB 04/28/14 Olmesartan-Hydrochlorothiazide (Benicar HCT) 40-25 Mg Tablet, 1 TAB PO DAILY, TAB 04/28/14 Discontinued Reported Medications Apixaban* (Eliquis*) 5 Mg Tablet, 10 MG PO BID, TAB 01/04/17 Clonidine Hcl* (Clonidine Hcl*) 0.1 Mg Tab, 0.1 MG PO Q8, TAB 04/28/14 Metoprolol Tartrate* (Lopressor*) 50 Mg Tab, 50 MG PO BID, TAB 04/28/14 Follow-up Plan PCP and cardiology in one week Primary Care Provider Eldon Polo Pending Labs Laboratory Tests Test 01/04/17 00:10 01/04/17 02:50 01/04/17 04:40 01/04/17 04:42 White Blood Count 10.310^3/ul (4.8-10.8) 8.510^3/ul (4.8-10.8) Red Blood Count 4.0110^6/ul (4.70-6.10) 3.9310^6/ul (4.70-6.10) Hemoglobin 13.1g/dl (14.0-18.0) 12.8g/dl (14.0-18.0) Hematocrit 35.9% (42.0-52.0) 35.4% (42.0-52.0) Mean Corpuscular Volume 89.5fl (82.0-101.0) 90.1fl (82.0-101.0) Mean Corpuscular Hemoglobin 32.7pg (29.0-33.0) 32.6pg (29.0-33.0) Mean Corpuscular Hemoglobin Concent 36.5g/dl (32.0-37.0) 36.2g/dl (32.0-37.0) Red Cell Distribution Width 12.6% (11.5-14.5) 12.5% (11.5-14.5) Platelet Count 87295^3/UL (140-415) 02289^3/UL (140-415) Mean Platelet Volume 10.1fl (7.4-10.4) 10.5fl (7.4-10.4) Neutrophils % 79.1% (39.0-77.0) 70.2% (39.0-77.0) Lymphocytes % 14.5% (15.0-51.0) 21.2% (15.0-51.0) Monocytes % 5.1% (0.0-11.0) 7.2% (0.0-11.0) Eosinophils % 0.6% (0.0-7.0) 0.8% (0.0-7.0) Basophils % 0.3% (0.0-2.0) 0.4% (0.0-2.0) Nucleated Red Blood Cells % 0.0/100WBC (0.0-0.0) 0.0/100WBC (0.0-0.0) Neutrophils # 8.210^3/ul (1.6-7.5) 6.010^3/ul (1.6-7.5) Lymphocytes # 1.510^3/ul (0.8-2.9) 1.810^3/ul (0.8-2.9) Monocytes # 0.510^3/ul (0.3-0.9) 0.610^3/ul (0.3-0.9) Eosinophils # 0.110^3/ul (0.0-0.5) 0.110^3/ul (0.0-0.5) Basophils # 0.010^3/ul (0.0-0.1) 0.010^3/ul (0.0-0.1) Nucleated Red Blood Cells # 0.010^3/ul (0.0-0.0) 0.010^3/ul (0.0-0.0) Sodium Level 137mmol/L (135-144) 140mmol/L (135-144) Potassium Level 3.2mmol/L (3.5-5.1) 3.6mmol/L (3.5-5.1) Chloride Level 110mmol/L (97-110) 113mmol/L (97-110) Carbon Dioxide Level 18mmol/L (21-31) 21mmol/L (21-31) Anion Gap 12 (8-16) 10 (8-16) Blood Urea Nitrogen 16mg/dl (7-20) 14mg/dl (7-20) Creatinine 0.95mg/dl (0.61-1.24) 0.88mg/dl (0.61-1.24) Glucose Level 247mg/dl (70-220) 140mg/dl (70-220) Calcium Level 9.4mg/dl (8.4-10.2) 9.2mg/dl (8.4-10.2) Total Bilirubin 0.2mg/dl (0.2-1.3) 0.2mg/dl (0.2-1.3) Direct Bilirubin 0.00mg/dl (0.00-0.20) 0.00mg/dl (0.00-0.20) Indirect Bilirubin 0.2mg/dl (0-1.1) 0.2mg/dl (0-1.1) Aspartate Amino Transf (AST/SGOT) 30IU/L (15-46) 29IU/L (15-46) Alanine Aminotransferase (ALT/SGPT) 42IU/L (13-69) 45IU/L (13-69) Alkaline Phosphatase 86IU/L (42-121) 51IU/L (42-121) Troponin I < 0.012ng/ml (0.00-0.12) < 0.012ng/ml (0.00-0.12) B-Type Natriuretic Peptide 217PG/ML (0-125) Total Protein 6.9g/dl (6.1-8.1) 6.5g/dl (6.1-8.1) Albumin 3.5g/dl (3.3-4.9) 3.2g/dl (3.3-4.9) Globulin 3.40g/dl (1.3-3.2) 3.30g/dl (1.3-3.2) Albumin/Globulin Ratio 1.02 0.96 Bedside Glucose 202mg/dL (70-220) 141mg/dL (70-220) Hemoglobin A1c 6.7% (0-5.9) Creatine Kinase 104IU/L (23-200) Creatine Kinase Index 0.9 Creatinine Kinase MB (Mass) 0.97ng/ml (0.0-2.4) Triglycerides Level 209mg/dl (0-149) Cholesterol Level 143mg/dl (100-200) LDL Cholesterol, Calculated 53mg/dl HDL Cholesterol 48mg/dl (30-78) Cholesterol/HDL Ratio 2.9RATIO Test 01/04/17 08:33 01/04/17 11:32 01/04/17 11:34 Bedside Glucose 161mg/dL (70-220) 178mg/dL (70-220) Creatine Kinase 98IU/L (23-200) Creatine Kinase Index 0.7 Creatinine Kinase MB (Mass) 0.71ng/ml (0.0-2.4) Troponin I < 0.012ng/ml (0.00-0.12) RAMEZ MCCABE MD Jan 04, 2017 13:21
--- NOTE | 2017-01-04 13:54 | RADRPT ---
Echocardiogram Report Patient Name: NBA LATIF Gender: Male Date: 1950 Study Date: 04-Jan-2017 Bail Agent: Iam Coreas [facility] Location: 5549 Ref. Physician: STEVENSON YOO Quality: Good Procedures: Transthoracic echocardiogram with complete 2D, M-Mode, and doppler examination. Indications: Chest Pain. 2D/M Mode Doppler Measurement Value Normal Ranges Measurement Value Normal Ranges LVIDd 2D 4.8 3.5 - 5.6 cm AV Peak Veto 1.5 m/sec LVIDs 2D 2.9 2.1 - 4.1 cm AV Peak PG 9.0 mmHg FS 2D 39.1 % LVOT Peak Veto 1.0 m/sec LVPWd 2D 1.4 0.6 - 1.1 cm LVOT Peak PG 4.0 mmHg IVSd 2D 1.4 0.6 - 1.1 cm MV E Peak Veto 1.1 m/sec IVS/LVPW 2D 1.0 MV A Peak Veto 1.1 m/sec AoR Diam 2D 3.5 2.0 - 3.7 cm MV E/A 1.0 LA/Ao 2D 1 0 - 1 MV Decel Time 239 msec EDV 2D 109.0 cm3 MV E/A 1.0 ESV 2D 24.6 cm3 TR Peak Veto 2.6 m/sec LA Dimen 2D 4.1 2.3 - 4.0 cm TR Peak PG 27.0 mmHg RVSP 35.0 mmHg Findings Left Ventricle: Normal left ventricular systolic function. Moderate concentric left ventricular hypertrophy. Ejection fraction is visually estimated at 65 %. Tissue Doppler/Mitral Doppler indices are consistent with impaired relaxation (Stage I diastolic dysfunction). Right Ventricle: Normal right ventricular size. Normal right ventricular systolic function. Left Atrium: There is mild enlargement of left atrium. Right Atrium: The right atrium is normal in size. Mitral Valve: Mitral valve leaflets appear mildly thickened. Moderate mitral annular calcification. Mild mitral valve regurgitation. Aortic Valve: Normal appearance of the aortic valve. No significant aortic stenosis or insufficiency. Tricuspid Valve: Normal appearance of the tricuspid valve. Estimated peak PA systolic pressure 35 mmHg. There is mild tricuspid regurgitation. Pulmonic Valve: Normal pulmonic valve appearance. Pericardium: Normal pericardium with no significant pericardial effusion. Aorta: Normal aortic root. IVC: Normal size and normal respiratory collapse consistent with normal right atrial pressure. Conclusions 1.Normal left ventricular systolic function. Moderate concentric left ventricular hypertrophy. Ejection fraction is visually estimated at 65 %. Tissue Doppler/Mitral Doppler indices are consistent with impaired relaxation (Stage I diastolic dysfunction). 2.Normal right ventricular size. Normal right ventricular systolic function. 3.There is mild enlargement of left atrium. 4.The right atrium is normal in size. 5.Mild mitral valve regurgitation. 6.No significant aortic stenosis or insufficiency. 7.Estimated peak PA systolic pressure 35 mmHg. There is mild tricuspid regurgitation. 8.Normal pericardium with no significant pericardial effusion. Electronically Signed By: Rubén Collins 04-Jan-2017 13:53:35 -0700 Patient Name: NBA LATIF Study Date: 04-Jan-2017 [id number]
[2017-01-05] MEDS ORDERED: ACCU-CHEK XX SCH (02:00)
[2017-01-05] MEDS ORDERED: INFLUENZA VIRUS VACCINE 0.5 ML SYG IM* ONE (09:00)
== END 2017-01-04 16:58 | disposition home or self-care (01) ==
LOC: E/R 23:46 → MS4 01-04 02:21
PROVIDERS: ADMIT Hospitalist; ATTEND Hospitalist
DX: R07.89 Other chest pain (principal); F41.8 Other specified anxiety disorders; I25.10 Atherosclerotic heart disease of native coronary artery without angina pectoris; I10 Essential (primary) hypertension; E11.9 Type 2 diabetes mellitus without complications; Z79.4 Long term (current) use of insulin; I48.91 Unspecified atrial fibrillation; I50.30 Unspecified diastolic (congestive) heart failure; R94.31 Abnormal electrocardiogram [ECG] [EKG]; E78.5 Hyperlipidemia, unspecified
CPT/HCPCS: 36415; 71010; 80053; 80061; 82550; 82553; 82962; 83036; 83880; 84484; 85025; 93005; 93306; 96372; 96374; 99285; G0378; J1815; J2270

== ENCOUNTER 2018-05-30 07:07 | Day surgery (SDC) | payer MEDICARE, OTHER ==
[2018-05-30] VITALS (15 sets, daily range): BP systolic 91–129; BP diastolic 54–81; PULSE 68–78; RESP 13–18; Ht 167.6 cm; Wt 85.2 kg
[~2018-05-30] VITALS: Ht 167.6 cm; Wt 85.2 kg
[~2018-05-30 07:07] MED LIST changes: +ALPR0.25 PO; -CLON-379 PO; +DEXL60CA2 PO; +DUTA0.5C PO; +ICOS1CAP PO; -METO-429 PO; +NAPR-688 PO; +OLOP2.5D5 OP; +SITA1TAB5 PO; +SUMA100T4 PO; +ZOLP10TA5 PO
[2018-05-30] MEDS ORDERED: ATOR40TA68 PO (07:38)
[2018-05-30] MEDS ORDERED: SITA1TAB5 PO (07:38)
[2018-05-30] MEDS ORDERED: ESCI10TA PO (07:39)
[2018-05-30] MEDS ORDERED: QUET50TA22 PO (07:39)
[2018-05-30] MEDS ORDERED: SUMA100T4 PO (07:39)
[2018-05-30] MEDS ORDERED: LINA290C PO (07:40)
[2018-05-30] MEDS ORDERED: OLME1TAB37 PO (07:41)
[2018-05-30] MEDS ORDERED: DULA1.5P SQ (07:42)
[2018-05-30] MEDS ORDERED: NOVO7030 SC ×2 (07:44)
[2018-05-30] MEDS ORDERED: ICOS1CAP PO (07:45)
[2018-05-30] MEDS ORDERED: DUTA0.5C PO (07:45)
[2018-05-30] MEDS ORDERED: DEXL60CA2 PO (07:46)
[2018-05-30] MEDS ORDERED: TAMS0.4C2 PO (07:46)
[2018-05-30] MEDS ORDERED: HYDR25TA6 PO (07:51)
[2018-05-30] MEDS ORDERED: CYCL1DRO BOTH EYES (07:51)
[2018-05-30] MEDS ORDERED: ERGO500013 PO (07:51)
[2018-05-30] MEDS ORDERED: MAGN400T28 PO (07:52)
[2018-05-30] MEDS ORDERED: NITR0.4T39 SL (07:52)
[2018-05-30] MEDS ORDERED: ZOLP10TA5 PO (07:53)
[2018-05-30] MEDS ORDERED: LORA0.5T PO (07:53)
[2018-05-30] MEDS ORDERED: DOXA4TAB3 PO (07:54)
[2018-05-30] MEDS ORDERED: METO25TA4 PO (07:54)
[2018-05-30] MEDS ORDERED: RANO500T2 PO (07:55)
[2018-05-30] MEDS ORDERED: LIDOCAINE 1% (MDV) 20 ML INJ ONE (08:47)
[2018-05-30] MEDS ORDERED: IODIXANOL LOCM 100 ML BTL ONE (08:47)
[2018-05-30] MEDS ORDERED: MIDAZOLAM 1 MG/ML 2 ML INJ ONE (08:47)
[2018-05-30] MEDS ORDERED: VERAPAMIL 5 MG INJ ONE (08:47)
[2018-05-30] MEDS ORDERED: HEPARIN 1000 UNITS/ML 10 ML INJ ONE (08:47)
[2018-05-30] MEDS ORDERED: NITROGLYCERIN (IC) 100 MCG/ML INJ ONE (08:47)
[2018-05-30] MEDS ORDERED: FENTAnyl 50 MCG/ML VIAL ONE (08:47)
[2018-05-30] MEDS ORDERED: PHENYLephrine 20MG IN 250 ML 0 ML ONE (10:00)
[2018-05-30] MEDS ORDERED: NORepinephrine 8MG/250 ML (PMX 250 ML ONE (10:05)
[2018-05-30] MEDS ORDERED: SOD CHLORIDE 0.9% 1,000 ML IV SCH (10:15)
--- NOTE | 2018-05-30 10:27 | SIPON ---
Date/Time of Note Date/Time of Note DATE: 05/30/18 TIME: 10:25 Operative Report Preoperative Diagnosis 1.chest pain Postoperative Diagnosis 1.non-obstructive cad Operation/Procedure Performed 1.[facility] Surgeon see signature line occupational therapy assistant 1.Santino Anesthesia: moderate sedation Estimated blood loss: minimal Transfusion Required none Specimen none Grafts/Implants none Complications none WENDI ARITA May 30, 2018 10:27
[2018-05-30] MEDS ORDERED: AL HYDROX/MG HYDROX/SIMETH 30 ML CUP PO PRN (10:30)
[2018-05-30] MEDS ORDERED: morphine 2 MG INJ IV PRN (10:30)
[2018-05-30] MEDS ORDERED: ONDANSETRON 4 MG INJ IV PRN (10:30)
[2018-05-30] MEDS ORDERED: ACETAMINOPHEN 325 MG TAB PO PRN (10:30)
--- NOTE | 2018-05-30 17:42 | CARRPT ---
DATE OF PROCEDURE: 05/30/2018 REASON FOR LEFT HEART CATHETERIZATION: Abnormal cardiac stress test with chest pain. TYPE OF ANESTHESIA: Conscious and local. BRIEF HISTORY: Mr. Ewing is a 68-year-old male with history of hypertension, dyslipidemia, diabet es mellitus, carotid stenosis who presented with complaints of substernal chest pain and underwent ca rdiac stress test revealing positive ischemia, possible multivessel distribution. Given these findin gs, the patient was referred for and presents today to undergo left heart catheterization to assess f or possibly significant obstructive coronary artery disease lending to symptoms of chest pain and sub sequent positive stress test findings. DESCRIPTION OF PROCEDURE: After informed consent was obtained, the patient was brought to the [facility] cardiac catheterization lab where her right radial wrist was prepped and drape d in sterile fashion. A 2% lidocaine was infiltrated into the right radial area in order to achieve adequate anesthesia. Using the modified Seldinger technique, the right radial artery was cannulated and a 6-[place] arterial sheath was placed. Initially, we attempted to cannulate the left main vick ry ostium with 6-[place] JL3.5 catheter. This proved unsuccessful and the patient was having signific ant vasospasm in his right radial artery. Subsequently, we switched to a 5-[place] JL3 which was used to successfully cannulate the left main coronary ostium. With contrast injection, multiple views of left coronary system were obtained. JL3.5 was removed over guidewire and a JR4 was used to cannulat e the right coronary arterial ostium. With contrast injection, multiple views of right coronary syst em were obtained. JR4 was then additionally used to cross the LV and LVEDP was measured and pullback across the aortic valve to assess for significant gradient, which there was not and removed. Subseq uently, this completed the procedure. The patient's sheath was removed. TR band was applied. There were no noted complications. FINDINGS: Coronary angiography: Right coronary artery proximally is a 3 mm vessel and its proximal portion has some focal appearing 50% stenosis. The right coronary artery is a dominant vessel and th erefore gives off a right-sided PDA, 2 mm with a 40% PDA stenosis. Posterolateral branch is a 2.5 mm vessel with no significant focal stenoses. The left main proximally is a 4 mm vessel and free from significant focal stenoses. The circumflex proximally is a 2 mm vessel and its mid body has a 30% to 40% stenosis. Remainder of circumflex is free from significant focal stenoses, branching into the o btuse marginal has 2 mm vessel with no significant focal stenoses. The LAD proximally is a 3 mm vess el and has no significant focal stenoses then becomes a very small caliber vessel that reaches toward s the apex and appears to stop just before the apex. There is a mid branching diagonal of 2 mm with no significant focal stenoses. LVEDP of 11, no significant aortic stenosis by gradient. TOTAL FLUOROSCOPY TIME: 6.5 minutes. TOTAL CONTRAST: 50 mL. IMPRESSION: 1. Moderate nonobstructive coronary artery disease. 2. Normal left heart filling pressures. 3. No significant aortic stenosis by gradient. 4. The patient with a significant radial vasospasm during the case and likely considered for femoral access in next attempt to left radial access. 5. Probable diffuse disease of the patient's vessels that are very small caliber with no significant focal stenoses. RECOMMENDATIONS: In light of procedure findings at this time, we would: 1. Maximize medical management. 2. Aggressive risk factor reduction. 3. The patient will be readmitted to the same day surgery for post-catheterization observation and c ontinued management of symptoms with probable discharge later this afternoon. Dictated By: WENDI ELLIOTT/KARELY Conf#: [id number] DID#: [id number] CC: STEVEN CASPER MD;*EndCC*
== END 2018-05-30 15:05 | disposition home or self-care (01) ==
LOC: SDS 07:07
PROVIDERS: ATTEND Internal Medicine
DX: I87.2 Venous insufficiency (chronic) (peripheral) (principal); I10 Essential (primary) hypertension; E78.00 Pure hypercholesterolemia, unspecified; I65.23 Occlusion and stenosis of bilateral carotid arteries; I34.0 Nonrheumatic mitral (valve) insufficiency; E11.9 Type 2 diabetes mellitus without complications
CPT/HCPCS: 71045; 80048; 80061; 82962; 85025; 85610; 85730; 93005; 93458; C1887; J1644; J2250; J3010; Q9967; J2370